=== PATIENT | female | born 1965 | race Caucasian/White ===

== ENCOUNTER 2017-08-27 15:48 | Emergency (ER) | payer MEDICARE, SELFPAY | END 2017-08-27 18:06 | disposition home or self-care (01) | PROVIDERS: Emergency Provider Nurse Practitioner Family; Visit Provider Nurse Practitioner Family | DX: J18.1 Lobar pneumonia, unspecified organism (principal); F17.210 Nicotine dependence, cigarettes, uncomplicated; J44.9 Chronic obstructive pulmonary disease, unspecified; E11.9 Type 2 diabetes mellitus without complications; N18.6 End stage renal disease; Z91.040 Latex allergy status; Z88.0 Allergy status to penicillin; I10 Essential (primary) hypertension; E78.5 Hyperlipidemia, unspecified | CPT/HCPCS: G0463; 71020; 94640; 99201 ==

== ENCOUNTER 2022-05-27 18:04 | Emergency (ER) | payer MEDICARE, SELFPAY ==
[2022-05-27] VITALS (10 sets, daily range): BP systolic 80–194; BP diastolic 38–119; PULSE 82–103; RESP 18–19; TEMP 36.7; O2SAT 89–94; BMI 39.6
--- NOTE | 2022-05-27 19:33 | XR_ITS ---
PROCEDURE INFORMATION: Exam: XR Chest Exam date and time: 05/27/2022 7:48 PM Age: 56 years old Clinical indication: Shortness of breath; Additional info: SOA TECHNIQUE: Imaging protocol: Radiologic exam of the chest. Views: 1 view. COMPARISON: CR CXR CHEST(2 VIEWS-NOT PORTABLE) 08/27/2017 4:58 PM FINDINGS: Lungs: Unremarkable. No consolidation. Pleural spaces: Unremarkable. No pleural effusion. No pneumothorax. Heart/Mediastinum: Unremarkable. No cardiomegaly. Bones/joints: Unremarkable. IMPRESSION: No acute findings.
--- NOTE | 2022-05-27 19:39 | PC.NURSE ---
RAD at for CXR
--- NOTE | 2022-05-27 19:42 | HMH.EDGENADL ---
Discharge Plan Disposition Patient Disposition: Still a Patient Referrals Follow up/Referrals: Sachi Koo DO [Primary Care Provider] - See instructions Clinical Impressions Clinical Impression: COPD (chronic obstructive pulmonary disease) Discharge ED Provider: Casey Jeter General Adult HPI General Chief complaint: Upper Respiratory Infection Stated complaint: COPD,SOB,Weakness Time Seen by Provider: 05/27/22 19:00 Mode of Arrival: Ambulatory Source of Information: Patient Limitations: No Limitations Description of Symptoms (Recalled from ER Triage Doc. by RN): PT REPORTS FEELING BAD X 3 WEEKS. PT STATES SHE WENT TO HER PCP AND WAS PLACED ON STEROIDS AND ABX- FELT BETTER AFTER SHE COMPLETED THEM BUT FEELS BAD AGAIN NOW. PT REPORTS THAT SHE HAS COPD, DM, AND CRF- AND PERFOMS DIALYSIS NIGHTLY AT HOME. History of Present Illness HPI narrative: 56-year-old female presents with worsening cough shortness of breath and fever. She says that she has had worsening need for oxygen requirement. She has no chest pain or abdominal pain nausea or vomiting. She did recent complete a round of steroids and antibiotics however she is feeling generalized weakness again as well as coughing more Related Data Allergies Allergy/AdvReac Type Severity Reaction Status Date / Time amoxicillin [AMOXICILLIN] Allergy Mild Verified 05/27/22 19:35 latex [LATEX] Allergy Mild Verified 05/27/22 19:35 naproxen [From [facility]] Allergy Mild Verified 05/27/22 19:35 PFSH PFSH Social History Smoking Status: Current every day smoker alcohol intake: never current occupational status: other Travel in the last 8 weeks: None ROS Obtained: Yes All systems reviewed & no additional complaints except as documented Physical Exam General General appearance: alert and in no apparent distress Eye Eye exam: Present PERRL and EOMI ENT ENT exam: Present normal exam and normal oropharynx Neck Neck exam: Present normal inspection Chest Chest inspection: Present symmetric chest wall rise Respiratory Respiratory exam: Present respiratory distress (Mild respiratory distress) and wheezes Cardiovascular Cardiovascular exam: Present regular rate and normal rhythm Abdominal Exam Abdominal exam: Present soft; Absent distention, tenderness, guarding, rebound, Bay's sign or tenderness at [place]'s [place] Back Exam Back exam: Present normal inspection Neurological Exam Neurological exam: Present alert and oriented X3 Psychiatric Psychiatric exam: Present normal affect and normal mood Skin Skin exam: Present warm, dry and intact Lymphatic Lymphatic Findings: no adenopathy Medical Decision Making Medical Records Medical records reviewed: Yes I reviewed the patient's medical records. Al Inquiry Pt receiving controlled substance: No Al was queried for this patient: No Vital Signs: 05/27/22 19:24 05/27/22 19:58 05/27/22 19:58 Temperature 98.1 F Temperature Source Oral Pulse Rate 82 82 Pulse Rate [Left Radial] 103 H Respiratory Rate 18 Blood Pressure Blood Pressure [Right Arm] 194/119 H Blood Pressure Mean [Right Arm] 144 Blood Pressure Source [Right Arm] Automatic Cuff Blood Pressure Position [Right Arm] Sitting 02 Sat by Pulse Oximetry 93 L Oxygen Delivery Method Nasal Cannula Oxygen Flow Rate (LPM) 2 05/27/22 19:31 Temperature Temperature Source Pulse Rate 103 H Pulse Rate [Left Radial] Respiratory Rate Blood Pressure 101/62 L Blood Pressure [Right Arm] Blood Pressure Mean [Right Arm] Blood Pressure Source [Right Arm] Blood Pressure Position [Right Arm] 02 Sat by Pulse Oximetry 92 L Oxygen Delivery Method Nasal Cannula Oxygen Flow Rate (LPM) 2 Lab Data Lab Results 05/27/22 19:29: WBC 15.2 H, RBC 4.53, Hgb 13.7, Hct 44.5, MCV 98.3, MCH 30.4, MCHC 30.9 L, RDW 14.3, Plt Count 436 H, MPV 8.1, Neut % (Auto) 68.0, Lymph % (Auto) 18.9, Lynn % (Auto) 7.3, Eos % (Auto) 4.0, Baso % (Auto) 1
[2022-05-27 19:52] LABS: Basophils # 0.3 K/mm3 (0-0.2); Basophils % 1.9 % (0.1-2.0); Eosinophils # 0.6 K/mm3 (0.0-0.4); Hematocrit 44.5 % (37.0-47.0); Hemoglobin 13.7 g/dL (12.2-16.2); Lymphocytes # 2.9 K/mm3 (0.7-4.5); Lymphocytes % 18.9 % (10-50); Mean Corpuscular HGB Conc 30.9 g/dL (31.8-35.4); Mean Corpuscular Hemoglobin 30.4 pg (27.0-31.2); Mean Corpuscular Volume 98.3 fl (81-99); Mean Platelet Volume 8.1 fl (7.4-10.4); Monocytes # 1.1 K/mm3 (0.1-1.0); Monocytes % 7.3 % (1.7-9.3); Neutrophils # 10.3 K/mm3 (1.8-7.8); Platelet Count 436 K/mm3 (142-424); Red Blood Count 4.53 M/mm3 (4.20-5.40); Red Cell Distribution Width 14.3 % (11.5-17.5); White Blood Count 15.2 K/mm3 (4.8-10.8)
[2022-05-27 19:53] LABS: Chloride 95 mmol/L (98-107); Potassium 4.2 mmoL/L (3.5-5.1); Sodium 143 mmol/L (136-145)
[2022-05-27 19:56] LABS: Alanine Aminotransferase 29 U/L (12-78); Albumin Level 4.2 g/dl (3.5-5.0); Albumin/Globulin Ratio 1.2 (1.1-1.8); Alkaline Phosphatase 103 U/L (38-126); Aspartate Amino Transferase 36 U/L (14-36); Bilirubin,Total 0.4 mg/dl (0.2-1.3); Blood Urea Nitrogen 43 mg/dl (7-17); Calcium 8.8 mg/dl (8.4-10.2); Carbon Dioxide 32 mmol/L (22.0-30.0); Creatinine Clearance Estimated 9 mL/min (50-200); Estimated Glomerular Filt Rate 4 ml/min (>60); GFR (African American) 4 ML/MIN (>60); Globulin 3.6 g/dL (1.3-3.2); Glucose 178 mg/dl (74-100); Magnesium 1.9 mg/dl (1.6-2.3); Total Protein,Serum 7.8 g/dl (6.3-8.2)
--- NOTE | 2022-05-27 19:56 | ECG_ITS ---
APPROVED REPORT Exam: Resting ECG HR:95 bpm ECG Measurements Heart Rate 95 AXES NJ 133 P 81 QRSd 87 QRS -16 QT 355 T 72 QTc 408 Conclusion SINUS RHYTHM LOW QRS VOLTAGE IN PRECORDIAL LEADS [QRS DEFLECTION < 1.0 mV IN CHEST LEADS] SEPTAL MYOCARDIAL INFARCTION , OF INDETERMINATE AGE [40+ ms Q WAVE IN V1/V2] ABNORMAL ECG UNCONFIRMED REPORT Electronically signed by : Praneeth Westfall MD 05/28/2022 13:49:21
[2022-05-27 20:00] LABS: Anion Gap 20.2 mEq/L (5-15)
[2022-05-27 20:01] LABS: MANUAL DIFFERENTIAL MANUAL DIFFERENTIAL (MANUAL DIFF)
--- NOTE | 2022-05-27 20:01 | PC.NURSE ---
notified MD of critical creatine 10.9
--- NOTE | 2022-05-27 20:05 | PC.NURSE ---
MADE AWARE OF ABNORMAL LABS.
[2022-05-27 20:06] LABS: NT Pro Brain Natriuretic Pep. 901 pg/mL (0-125)
[2022-05-27 20:14] LABS: VBG Base Excess 1.7 mmol/L (-2.4-2.3); VBG HCO3 28.4 mmol/L (23-30); VBG Oxygen Saturation 60.3 % (50-70); VBG PH 7.28 mmol/L (7.31-7.41); VBG PO2 36.2 mmol/L (28-40); VBG Total CO2 30.3 mmol/L (23-27)
[2022-05-27 20:18] LABS: VBG PCO2 61.2 mmol/L (35-51)
--- NOTE | 2022-05-27 20:26 | PC.NURSE ---
MADE AWARE OF VBG RESULTS.
[2022-05-27 20:27] LABS: Coronavirus 19, PCR Not Detected (NotDetected); Influenza A, PCR Not Detected (NotDetected); Influenza B, PCR Not Detected (NotDetected)
--- NOTE | 2022-05-27 21:17 | PC.NURSE ---
PT given another warm blanket for comfort.
--- NOTE | 2022-05-27 22:38 | PC.NURSE ---
at BS speaking with pt about results
--- NOTE | 2022-05-27 22:42 | PC.NURSE ---
PT AWARE OF PLAN TO DISCHARGE.
[2022-05-27 22:55] LABS: Eosinophils % 4 % (0-3); Lymphocytes % 27 % (10-50); Monocytes % 2 % (2-9); Neutrophils % 67 % (42-76); Total Cells Counted 100
[2022-05-27 22:56] LABS: Platelet Estimate Normal; Stomatocytes 1+
== END 2022-05-27 22:52 | disposition home or self-care (01) ==
PROVIDERS: Emergency Provider Emergency Medicine; PCP Family Medicine
DX: J44.1 Chronic obstructive pulmonary disease with (acute) exacerbation (principal); E11.22 Type 2 diabetes mellitus with diabetic chronic kidney disease; N18.6 End stage renal disease; Z20.822 Contact with and (suspected) exposure to COVID-19
CPT/HCPCS: 71045; 80053; 82803; 83735; 83880; 85007; 85025; 93005; 96374; 99284; C9803; U0003; U0005

== ENCOUNTER → 2023-03-19 10:17 | Outpatient (CLI) | payer MEDICARE, SELFPAY ==
[2023-03-19 12:04] LABS: Vancomycin,Random 18.5 ug/ml
== END ==
LOC: INF 10:23 → LAB 10:28
PROVIDERS: PCP Family Medicine; Visit Provider Internal Medicine Nephrology
DX: K65.8 Other peritonitis (principal); Z79.2 Long term (current) use of antibiotics
CPT/HCPCS: 36415; 80202

== ENCOUNTER 2023-04-03 15:16 | Emergency (ER) | payer MEDICARE, SELFPAY ==
[2023-04-03 15:18] VITALS: BP 100/60; PULSE 79; RESP 21; O2SAT 90; BMI 34.0
--- NOTE | 2023-04-03 15:46 | XR_ITS ---
PROCEDURE INFORMATION: Exam: XR Chest Exam date and time: 04/03/2023 4:20 PM Age: 57 years old Clinical indication: Chest wall pain; Additional info: R lower chest wall pain TECHNIQUE: Imaging protocol: Radiologic exam of the chest. Views: 2 views. COMPARISON: CR XR CHEST PORTABLE 05/27/2022 7:48 PM FINDINGS: Limitations: Bra artifact. Tubes, catheters and devices: Clips project at the medial left arm. Lungs: Unremarkable. No consolidation. Pleural spaces: Unremarkable. No pleural effusion. No pneumothorax. Heart/Mediastinum: Unremarkable. No cardiomegaly. Bones/joints: Degenerative changes of the spine and right acromioclavicular joint. IMPRESSION: No acute findings.
[2023-04-03 16:01] VITALS: BP 84/40; PULSE 93; RESP 18; O2SAT 93
--- NOTE | 2023-04-03 16:27 | HMH.EDGENADL ---
Discharge Plan Disposition Patient Disposition: Home, Self-Care Condition: Good Prescriptions Prescriptions: New methocarbamol 750 mg tablet 750 mg PO Q8H PRN (Reason: pain) Qty: 20 0RF lidocaine [Lidoderm] 5 % adhesive patch,medicated 1 patch topical DAILY Qty: 15 0RF Rx Instructions: leave on most painful area for up to 12 hrs No Action quetiapine 25 mg tablet 25 mg PO HS albuterol sulfate 2.5 mg /3 mL (0.083 %) solution for nebulization 2.5 mg inhalation TID PRN (Reason: ASTHMA) hydroxyzine HCl 50 mg tablet 50 mg PO HS hydrocodone-acetaminophen 7.5-325 mg tablet 1 tab PO QID omeprazole 20 mg capsule,delayed release(DR/EC) 40 mg PO DAILY montelukast 10 mg tablet 10 mg PO HS mirtazapine 15 mg tablet 15 mg PO HS calcium acetate(phosphat bind) 667 mg capsule 1,334 mg PO TID pregabalin 75 mg capsule 75 mg PO BID Januvia 50 mg tablet 50 mg PO DAILY memantine 7 mg capsule,sprinkle,ER 24hr 7 mg PO DAILY Mikaela-Adam 0.8 mg Tablet 1 tab PO HS gentamicin 0.1 % Ointment 1 applic TOPICAL HS Vitamin D2 25,000 unit Capsule 50,000 unit PO WEEKLY magnesium [Mag-200] 200 mg Tablet 400 mg PO BID Linzess 145 mcg Capsule 145 mcg PO NEEDED PRN (Reason: Constipation) Probiotic 10 billion cell Capsule 10,000 mmu cells PO DAILY fluticasone furoate-vilanterol [Breo Ellipta] 100-25 mcg/dose Blister With Device 1 inh INHALATION DAILY potassium chloride 10 mEq Capsule, Extended Release 10 meq PO BID prednisone [prednisone] 20 mg tablet 20 mg PO BID Qty: 10 0RF Referrals Follow up/Referrals: Sachi Koo DO [Primary Care Provider] - See instructions Activity Restrictions/Add. Instructions Additional Instructions/Restrictions: You were evaluated in the emergency department today. At this time, your chest x-ray looks good. Your vitals are all reassuring, and we feel that this is likely musculoskeletal pain. Continue taking your pain medications at home as prescribed. I am also providing you with a muscle relaxer to take as needed for severe pain. I also recommend [id number] lidocaine patches. Return to the emergency department for any new or worsening symptoms. Clinical Impressions Clinical Impression: Acute costochondritis Instructions Patient Instructions: DI for Costochondritis Discharge ED Provider: Mary Rubio General Adult HPI General Chief complaint: PAIN Stated complaint: rt rib pain Time Seen by Provider: 04/03/23 15:26 Mode of Arrival: Wheelchair Limitations: No Limitations Description of Symptoms (Recalled from ER Triage Doc. by RN): right side pain, pain with deep breath History of Present Illness HPI narrative: This patient is a 57-year-old female with a history of COPD on 3 L nasal cannula presenting to the emergency department for evaluation with right rib pain. She states that it is been going on for about 4 days now. It is worse with any movement or trying to take a deep breath. Her right-sided chest wall is tender to palpation. She denies any fevers, chills, other chest pain, shortness of breath, abdominal pain, nausea, vomiting, change in bowel movements, or other concerns. She cannot think of any potential traumatic injuries. Related Data Home Medications Medication Instructions Recorded Confirmed Lactobacillus acidophilus 10 10,000 mmu cells PO DAILY 05/27/22 05/27/22 billion cell capsule (Probiotic) Supplement albuterol sulfate 2.5 mg/3 mL 2.5 mg inhalation TID PRN ASTHMA 05/27/22 05/27/22 (0.083 %) solution for nebulization calcium acetate(phosphat bind) 667 1,334 mg PO TID Supplement 05/27/22 05/27/22 mg capsule ergocalciferol (vitamin D2) 25,000 50,000 unit PO WEEKLY Supplement 05/27/22 05/27/22 unit capsule fluticasone furoate 100 1 inh inhalation DAILY Asthma 05/27/22 05/27/22 mcg-vilanterol 25 mcg/dose inhalat
[2023-04-03 16:30] VITALS: BP 112/66; PULSE 85; RESP 22; O2SAT 96
--- NOTE | 2023-04-03 16:38 | PC.NURSE ---
pt going to radiology for chest xray.
--- NOTE | 2023-04-03 16:40 | PC.NURSE ---
pt returned from radiology.
[2023-04-03 18:25] VITALS: BP 112/66; PULSE 87; RESP 18; TEMP 36.6; O2SAT 96
== END 2023-04-03 18:25 | disposition home or self-care (01) ==
PROVIDERS: Emergency Provider Emergency Medicine; PCP Family Medicine
DX: R07.81 Pleurodynia (principal); M94.0 Chondrocostal junction syndrome [Tietze]; J44.9 Chronic obstructive pulmonary disease, unspecified; E11.22 Type 2 diabetes mellitus with diabetic chronic kidney disease; I12.9 Hypertensive chronic kidney disease with stage 1 through stage 4 chronic kidney disease, or unspecified chronic kidney disease; N18.9 Chronic kidney disease, unspecified; F17.200 Nicotine dependence, unspecified, uncomplicated
CPT/HCPCS: 71046; 99283